=== PATIENT | female | born 1985 | race Caucasian/White ===

== ENCOUNTER 2019-10-04 04:12 | Emergency (ER) | payer BC ==
[~2019-10-04] VITALS: Ht 162.6 cm; Wt 65.8 kg
[2019-10-04] MEDS ORDERED: RITALIN20 MG PO (04:32)
[2019-10-04] MEDS ORDERED: SERTRALINE HCL50 MG PO (04:33)
[2019-10-04] MEDS ORDERED: BUPROPION XL150 MG PO (04:34)
[2019-10-04 04:39] LABS: URINE BLOOD NEGATIVE (Negative); URINE CLARITY CLEAR; URINE COLOR DARK YELLOW; URINE GLUCOSE-RANDOM NEGATIVE (Negative); URINE LEUKOCYTES-REFLEX NEGATIVE (Negative); URINE NITRITE-REFLEX NEGATIVE (Negative); URINE PROTEIN TRACE (Negative); URINE SPECIFIC GRAVITY >= 1.030 (1.005-1.030)
[2019-10-04 04:40] LABS: ICTOTEST (BILI CONFIRMATORY) Positive (Negative); URINE BILIRUBIN 1+ (Negative); URINE KETONES 3+ (Negative)
[2019-10-04 04:42] LABS: ACETEST (KETONE CONFIRMATORY) Moderate (Negative)
[2019-10-04 04:55] LABS: HEMATOCRIT 36.1 % (37.0-47.0); HEMOGLOBIN 11.7 gm/dL (12.0-15.0); MCH 26.7 pg (26.0-34.0); MCHC 32.5 g/dL (28.0-37.0); MCV 82.1 fL (80.0-100.0); MPV 7.6 fl. (7.2-11.1); NUCLEATED RBCS 0 /100WBC; PLATELET COUNT* 397 thou/uL (150-400); RBC 4.39 mil/uL (4.20-5.00); RDW-CV 17.6 % (10.5-14.5); WBC 10.4 thou/uL (4.0-11.0)
[2019-10-04 05:07] LABS: CALCIUM 8.4 mg/dL (8.5-10.1); CREATININE 0.8 mg/dL (0.6-1.3); POTASSIUM 3.6 mmol/L (3.5-5.1)
[2019-10-04 05:11] LABS: ALBUMIN 4.5 g/dL (3.4-5.0); TOTAL BILIRUBIN 0.4 mg/dL (<0.1-1.0); TOTAL PROTEIN 7.9 g/dL (6.4-8.2)
[2019-10-04 05:55] LABS: ABSOLUTE MONOCYTES 0.1 thou/uL (0.0-1.2); ABSOLUTE NEUTROPHILS 9.3 thou/uL (1.6-8.1)
[2019-10-04 05:56] LABS: ANISOCYTOSIS 1+; PLATELET ESTIMATE ADEQUATE; POIKILOCYTOSIS 1+
[2019-10-04 06:47] LABS: AMP/METHAMP Negative (Negative); BARBITURATES Negative (Negative); BENZODIAZEPINES Negative (Negative); COCAINE Negative (Negative); METHADONE Negative (Negative); OPIATES POSITIVE (Negative); PCP Negative (Negative); THC POSITIVE (Negative)
[2019-10-04] MEDS ORDERED: HYDROCODON-ACE1 EAC7 PO (10:36)
[2019-10-04] MEDS ORDERED: TORADOL 10 MG T10 MG PO (10:36)
[2019-10-04] MEDS ORDERED: ZOFRAN ODT4 MG PO (10:36)
[2019-10-04 11:17] VITALS: BP 98/67
[2019-10-05] MEDS ORDERED: FLEXERIL PO (01:08)
== END 2019-10-04 11:19 | disposition home or self-care (01) ==
LOC: M.ERS 04:12
PROVIDERS: Emergency Medicine Emergency Medical Services
DX: D25.9 Leiomyoma of uterus, unspecified (principal); R10.2 Pelvic and perineal pain

== ENCOUNTER 2019-10-04 20:38 | Emergency (ER) | payer BC ==
[~2019-10-04] VITALS: Ht 162.6 cm; Wt 65.8 kg
[~2019-10-04 20:38] MED LIST: BUPROPION XL150 MG PO; HYDROCODON-ACE1 EAC7 PO; RITALIN20 MG PO; SERTRALINE HCL50 MG PO; TORADOL 10 MG T10 MG PO; ZOFRAN ODT4 MG PO
[2019-10-05 01:05] LABS: URINE BLOOD NEGATIVE (Negative); URINE CLARITY CLEAR; URINE COLOR ORANGE; URINE GLUCOSE-RANDOM TRACE (Negative); URINE LEUKOCYTES-REFLEX NEGATIVE (Negative); URINE PROTEIN 1+ (Negative); URINE SPECIFIC GRAVITY >= 1.030 (1.005-1.030)
[2019-10-05 01:06] LABS: URINE BILIRUBIN 2+ (Negative); URINE KETONES 3+ (Negative); URINE NITRITE-REFLEX POSITIVE (Negative)
[2019-10-05] MEDS ORDERED: FLEXERIL PO (01:08)
[2019-10-05 01:09] LABS: ACETEST (KETONE CONFIRMATORY) Large (Negative); ICTOTEST (BILI CONFIRMATORY) Negative (Negative)
[2019-10-05 01:29] VITALS: BP 124/57
[2019-10-05 01:38] LABS: SQUAMOUS >10 Many /LPF (0-3)
[2019-10-05 01:39] LABS: BACTERIA-REFLEX 1-9 Few /HPF (None Seen); CASTS None Seen /LPF (None Seen); CRYSTALS None Seen /LPF (None Seen); MUCUS 4-6 Moderate strn/LPF (None Seen); URINE RBC None Seen /HPF (0-2); URINE WBC-REFLEX 0-5 Rare /HPF (0-5)
== END 2019-10-05 01:30 | disposition home or self-care (01) ==
LOC: M.ERS 20:38
PROVIDERS: Emergency Medicine
DX: D25.9 Leiomyoma of uterus, unspecified (principal); N85.8 Other specified noninflammatory disorders of uterus